=== PATIENT | male | born 1990 | race Caucasian/White ===

== ENCOUNTER 2018-12-20 21:50 | Emergency (ER) | payer MEDICAID, OTHER ==
[~2018-12-20] VITALS: Wt 71.0 kg
[2018-12-20 21:52] VITALS: BP 143/78; PULSE 85; RESP 18
--- NOTE | 2018-12-20 23:35 | ERD ---
ER Documentation Chief Complaint Chief Complaint SWALLOWED TEMPORARY CROWN HPI History of Present Illness: 28-year-old male with no past medical history coming in today with complaint of swallowed temporary crown. Patient reports this occurred 2 hours prior to arrival. Patient reports he is not having any abdominal pain, difficulty breathing. Patient speaking in clear sentences without acute distress during physical exam. At home pharmacological/nonpharmacological treatment for symptoms: denies Denies social concerns; Denies recent foreign travel ROS All systems reviewed and are negative except as per history of present illness. Allergies Allergies: Coded Allergies: No Known Allergy (Unverified , 12/20/18) PMhx/Soc Medical and Surgical Hx: pt denies Medical Hx, pt denies Surgical Hx Hx Alcohol Use: No Hx Substance Use: No Hx Tobacco Use: Yes Smoking Status: Current every day smoker FmHx Family History: No diabetes, No coronary disease Physical Exam Vitals Vital Signs Date Temp Pulse Resp B/P (MAP) Pulse Ox O2 O2 Flow FiO2 Time Delivery Rate 12/20/18 97.3 85 18 143/78 100 21:52 (99) Physical Exam Const: No acute distress Head: Atraumatic Eyes: Normal Conjunctiva ENT: Normal External Ears, Nose and oropharynx clear. Missing crown noted to tooth #9. Neck: Full range of motion. No meningismus. Resp: Clear to auscultation bilaterally Cardio: Regular rate and rhythm, no murmurs Abd: Soft, non tender, non distended. Normal bowel sounds Skin: No petechiae or rashes Back: No midline or flank tenderness Ext: No cyanosis, or edema Neur: Awake and alert Psych: Normal Mood and Affect Procedures/MDM ED course includes a thorough examination and history. Medications: -- Imaging: -- Labs: -- Low suspicion for life-threatening medical emergency. No suspicion for acute abdominal or respiratory emergency. Otherwise healthy patient presenting with constellation of symptoms likely representing uncomplicated swallowed foreign body as characterized by history, physical exam findings. No respiratory distress, otherwise relatively well appearing and nontoxic. Patient educated on diagnoses, prescriptions, follow-up care, return precautions. Strict return precautions given for worsening condition; questions answered discharge. Disposition for discharge with followup in dentist tomorrow Departure Diagnosis: Primary Impression: Foreign body, swallowed Encounter type: initial encounter Qualified Codes: T18.9XXA - Foreign body of alimentary tract, part unspecified, initial encounter Condition: Stable Patient Instructions: Dental Pain, Swallowed Foreign Body (Adult) [facility] Usted se amaro hecho un examen mdico de control que le indica que no est en tish condicin que requiera tratamiento urgente en el Departamento de Emergencia. Un estudio ms profundo y el tratamiento de fontaine condicin pueden esperar sin ningn riesgo hasta que usted sea atendida/o en el consultorio de fontaine mdico o tish clnica. Es responsabilidad suya arreglar tish komal para el seguimiento del blanco. MANEJO DE CONDICIONES NO URGENTES EN EL FUTURO 1) Si usted tiene un mdico de atencin primaria: Usted debera llamar a fontaine mdico de atencin primaria antes de venir al departamento de emergencia. Despus de las horas de consultorio, fontaine doctor o fontaine asociado/a est disponible por telfono. El mdico o enfermero de srikanth en el servicio telefnico puede asesorarle por teresa medio para atender el problema, o blanco contrario se puede programar tish komal. 2) Si usted no tiene un mdico de atencin primaria: Llame al mdico o clnica de referencia que aparece abajo max las horas de consultorio para hacer tish komal para que le vean. CLINICAS: [facility] [phone] [facility] [phone] [facility] [phone] [facility]. [facility] [phone] [facility] [phone] [facility]. [phone] [facility] () Usted se amaro hecho un examen mdico de control que le indica que no est en tish condicin que requiera tratamiento urgente en el Departamento de Emergencia. Un estudio ms profundo y el tratamiento de fontaine condicin pueden esperar sin ningn riesgo hasta que usted sea atendida/o en el consultorio de fontaine mdico o tish clnica. Es responsabilidad suya arreglar tish komal para el seguimiento del blanco. MANEJO DE CONDICIONES NO URGENTES EN EL FUTURO 1) Si usted tiene un mdico de atencin primaria: Usted debera llamar a fontaine mdico de atencin primaria antes de venir al departamento de emergencia. Despus de las horas de consultorio, fontaine doctor o fontaine asociado/a est disponible por telfono. El mdico o enfermero de srikanth en el servicio telefnico puede asesorarle por teresa medio para atender el problema, o blanco contrario se puede programar tish komal. 2) Si usted no tiene un mdico de atencin primaria: Llame al mdico o condado institucions de referencia que aparece abajo max las horas de consultorio para hacer tish komal para que le vean. SI USTED NO PUEDE PAGAR PARA GEOFF UN MEDICO puede ir a: [facility] [address] [place] [address] [facility] [address] [place] [address] [facility] [address] [place] [address] [facility] [address] [place] [address] [facility] ([facility] walk in clinic) Additional Instructions: Muchas tip por permitirnos participar en fontaine cuidado. Fontaine alison y seguridad es nuestra principal prioridad en [facility]. Es importante leer todas las instrucciones de gordon y la educacin que se proporcionan en fontaine paquete de gordon. Llame a fontaine dentista MAANA para tish komal max los prximos 1-2 modi. No hay ningn medicamento que podamos darle para ayudar a la hinchazn. Si los sntomas empeoran o usted presenta dolor abdominal y fontaine proveedor no est disponible, regrese inmediatamente al Departamento de Emergencias. DAVID ROSA NP Dec 20, 2018 23:35
== END 2018-12-20 23:49 | disposition home or self-care (01) ==
LOC: FTE 21:50
DX: T18.9XXA Foreign body of alimentary tract, part unspecified, initial encounter (principal); F17.200 Nicotine dependence, unspecified, uncomplicated; X58.XXXA Exposure to other specified factors, initial encounter; Y92.9 Unspecified place or not applicable
CPT/HCPCS: 99282